=== PATIENT | male | born 1955 | race Hispanic/Latino ===

== ENCOUNTER 2022-04-15 17:23 | Emergency (ER) | payer MEDICARE, BC ==
[2022-04-15] MEDS ORDERED: Acetaminophen 500 MG TAB ONE (17:56)
== END 2022-04-15 18:14 | disposition home or self-care (01) ==
LOC: CSHERS 17:23
DX: U07.1 COVID-19 (principal); E11.9 Type 2 diabetes mellitus without complications; I25.10 Atherosclerotic heart disease of native coronary artery without angina pectoris; I10 Essential (primary) hypertension; K21.9 Gastro-esophageal reflux disease without esophagitis; Z79.899 Other long term (current) drug therapy; Z79.82 Long term (current) use of aspirin; Z79.84 Long term (current) use of oral hypoglycemic drugs
CPT/HCPCS: 99283

== ENCOUNTER 2022-10-12 17:52 | Inpatient (IN) | payer MEDICARE, BC ==
[2022-10-12 18:38] LABS: #Eosinphils 0.1 10x3/uL (0.0-0.5); #Monocytes 0.5 10x3/uL (0.0-1.1); #Neutrophils 7.4 10x3/uL (1.5-8.4); %Basophils 0.5 % (0.0-2.0); %Eosinophils 0.9 % (0.0-6.0); %Monocytes 5.7 % (0.0-10.0); %Neutrophils 84.6 % (40.0-75.0); Hemoglobin 13.4 g/dL (13.5-17.5); Mean Corpuscular Hemoglobin 30.9 pg (27.0-33.0); Mean Platelet Volume 10.3 fl (7.4-10.4); Platelet Count 227 10x3/uL (150-450); RBC Distribution Width 12.4 % (11.5-14.5); Red Blood Cell (RBC) Count 4.33 10x6/uL (4.32-5.72); White Blood Cell (WBC) Count 8.7 10x3/uL (3.5-10.5)
[2022-10-12 18:51] LABS: ALT (SGPT) 11 U/L (8-55); AST (SGOT) 17 U/L (5-34); Albumin 3.9 g/dL (3.4-4.8); Alkaline Phosphatase 95 U/L (40-110); Anion Gap 13 mmol/L (10-20); BUN (Urea Nitrogen) 13 mg/dL (8.4-25.7); Bilirubin, Total 0.7 mg/dL (0.2-1.2); Calc. Creatinine Clearance 0 mL/min (70-130); Calcium 8.9 mg/dL (7.8-10.44); Carbon Dioxide 26 mmol/L (23-31); Chloride 102 mmol/L (98-107); Estimated GFR 86; Globulin 2.4 g/dL (2.4-3.5); Glucose 247 mg/dL (80-115); Potassium 3.8 mmol/L (3.5-5.1); Protein, Total 6.3 g/dL (5.8-8.1); Sodium 137 mmol/L (136-145)
[2022-10-12 19:13] LABS: CKMB 1.2 ng/mL (0-6.6)
[2022-10-12] MEDS ORDERED: Aspirin Chewable 81 MG TAB ONE (19:44)
[2022-10-12 20:53] LABS: SARS-CoV-2 NAA Rapid Test Not Detected (NotDetected)
[2022-10-12 22:09] LABS: Troponin I 0.068 ng/mL (< 0.028)
[2022-10-12] MEDS ORDERED: Dextrose 5% in Water 1,000 ML IV PRN (22:42)
[2022-10-12] MEDS ORDERED: Acetaminophen 325 MG TAB PO PRN (22:42)
[2022-10-12] MEDS ORDERED: Guaifenesin DM 100-10/5 ML UDCUP PO PRN (22:42)
[2022-10-12] MEDS ORDERED: HYDROcodone/Acetaminophen 5/325 mg Tablet PO PRN (22:42)
[2022-10-12] MEDS ORDERED: Ondansetron PF 4 MG/2 ML Vial IVP PRN (22:42)
[2022-10-12] MEDS ORDERED: Dextrose 50% Abboject 50 ML SYRINGE SLOW IVP PRN (22:42)
[2022-10-12] MEDS ORDERED: HumaLOG 300 UNITS/3 ML VIAL SC PRN (22:42)
[2022-10-12] MEDS ORDERED: Morphine 2 MG/ML VIAL SLOW IVP PRN (23:00)
[2022-10-12] MEDS ORDERED: Furosemide 40 MG/4 ML VIAL SLOW IVP SCH (23:00)
[2022-10-12] MEDS ORDERED: hydrALAZINE 20 MG/ML VIAL SLOW IVP PRN (23:00)
[2022-10-12 23:08] LABS: Magnesium 1.4 mg/dL (1.6-2.6)
[2022-10-13 00:07] VITALS: BMI 26.2
[2022-10-13 00:25] LABS: Bilirubin Neg (Negative); Blood, Urine Negative (Negative); Clarity Cloudy (Clear); Glucose, Urine (Dipstick) Normal (Negative); Ketone, Urine Negative (Negative); Leukocyte Negative (Negative); Nitrite Negative (Negative); Protein, Urine (Dipstick) Negative (Neg-Trace); Specific Gravity, Urine 1.025 (1.005-1.030); Urobilinogen Normal mg/dL (Less than 2)
[2022-10-13 00:33] LABS: Bacteria/HPF None Seen HPF (None Seen); RBC/HPF 0-3 HPF (0-3); Squamous Epithelial None Seen HPF (0-3); WBC/HPF 0-3 HPF (0-3)
[2022-10-13] MEDS ORDERED: Furosemide 40 MG/4 ML VIAL ONE (00:34)
[2022-10-13 01:10] LABS: Troponin I 0.068 ng/mL (< 0.028)
[2022-10-13 04:29] LABS: Hemoglobin 12.9 g/dL (13.5-17.5); Mean Corpuscular HGB CONC 34.1 g/dL (32.0-36.0); Mean Corpuscular Hemoglobin 30.4 pg (27.0-33.0); Mean Corpuscular Volume 89.2 fl (81.2-95.1); Mean Platelet Volume 10.4 fl (7.4-10.4); Platelet Count 230 10x3/uL (150-450); RBC Distribution Width 12.5 % (11.5-14.5); Red Blood Cell (RBC) Count 4.24 10x6/uL (4.32-5.72); White Blood Cell (WBC) Count 12.7 10x3/uL (3.5-10.5)
[2022-10-13 04:32] LABS: Troponin I 0.065 ng/mL (< 0.028)
[2022-10-13 04:34] LABS: ALT (SGPT) 11 U/L (8-55); AST (SGOT) 15 U/L (5-34); Albumin 3.5 g/dL (3.4-4.8); Alkaline Phosphatase 90 U/L (40-110); Anion Gap 15 mmol/L (10-20); BUN (Urea Nitrogen) 24 mg/dL (8.4-25.7); Bilirubin, Total 0.5 mg/dL (0.2-1.2); Calc. Creatinine Clearance 60 mL/min (70-130); Calcium 8.8 mg/dL (7.8-10.44); Carbon Dioxide 26 mmol/L (23-31); Cardiac Risk 5.2 (Less than 4.5); Chloride 100 mmol/L (98-107); Cholesterol 249 mg/dl (< 200 Desired); Estimated GFR 56; Globulin 2.7 g/dL (2.4-3.5); HDL Cholesterol 48 mg/dL (>60 Neg Risk); LDL Cholesterol, Calculated 176 mg/dL; Potassium 3.9 mmol/L (3.5-5.1); Protein, Total 6.2 g/dL (5.8-8.1); Sodium 137 mmol/L (136-145); Triglycerides 127 mg/dL (Less than 150)
[2022-10-13 04:36] LABS: MDiff Complete? YES
[2022-10-13 04:52] LABS: Glucose 489 mg/dL (80-115)
[2022-10-13] MEDS: HumaLOG 300 UNITS/3 ML VIAL SC PRN ×2 (04:55→16:51)
[2022-10-13 05:25] LABS: Band 11 % (5-11); Lymphocytes 6 % (21-51); Monocytes 3 % (0-10); Neutrophil 77 % (42-75); Reactive Lymphocytes 3 % (0-10)
[2022-10-13 05:27] LABS: Platelet Morphology Comment Appears Adequate; RBC Morphology Normal
[2022-10-13] MEDS ORDERED: Furosemide 40 MG TAB PO SCH (09:00)
[2022-10-13] MEDS ORDERED: Famotidine 20 MG TAB ONE (10:37)
[2022-10-13] MEDS ORDERED: Carvedilol 3.125 MG TAB ONE ×2 (10:38→16:29)
[2022-10-13] MEDS ORDERED: Potassium Chloride 20 MEQ TAB ONE (10:38)
[2022-10-13] MEDS ORDERED: metFORMIN 500 MG TAB ONE ×2 (10:39→16:31)
[2022-10-13] MEDS ORDERED: Aspirin 81 mg Enteric Coated Tablet ONE (10:39)
[2022-10-13] MEDS ORDERED: Furosemide 40 MG TAB ONE (10:40)
[2022-10-13] MEDS ORDERED: Enoxaparin Sodium 40 MG/0.4 ML SYRINGE ONE (10:40)
[2022-10-13] MEDS: Carvedilol 3.125 MG TAB PO SCH ×2 (10:50→16:34)
[2022-10-13] MEDS: Aspirin 81 mg Enteric Coated Tablet PO SCH (10:50)
[2022-10-13] MEDS: Famotidine 20 MG TAB PO SCH ×2 (10:50→21:52)
[2022-10-13] MEDS: Potassium Chloride 20 MEQ TAB PO SCH (10:50)
[2022-10-13] MEDS: metFORMIN 500 MG TAB PO SCH ×2 (10:50→16:34)
[2022-10-13] MEDS: Enoxaparin Sodium 40 MG/0.4 ML SYRINGE SC SCH (10:50)
[2022-10-13] MEDS ORDERED: cefTRIAXone\\ROCEPHIN 1 GM VIAL ONE (13:53)
[2022-10-13] MEDS: cefTRIAXone\\ROCEPHIN 1 GM in Sodium Chloride 0.9% 100 ML IVPB SCH (15:36)
[2022-10-13] MEDS: Lantus 1000 UNITS/10 ML VIAL SC SCH (21:52)
[2022-10-13] MEDS: Atorvastatin Calcium 10 MG TAB PO SCH (21:52)
[2022-10-14] MEDS: HumaLOG 300 UNITS/3 ML VIAL SC PRN ×2 (05:46→15:37)
[2022-10-14] MEDS: Carvedilol 3.125 MG TAB PO SCH ×2 (08:24→15:20)
[2022-10-14] MEDS: Enoxaparin Sodium 40 MG/0.4 ML SYRINGE SC SCH (08:24)
[2022-10-14] MEDS: Furosemide 40 MG TAB PO SCH (08:24)
[2022-10-14] MEDS: metFORMIN 500 MG TAB PO SCH (08:24)
[2022-10-14] MEDS: Potassium Chloride 20 MEQ TAB PO SCH (08:24)
[2022-10-14] MEDS: Famotidine 20 MG TAB PO SCH ×2 (08:24→21:25)
[2022-10-14] MEDS: Aspirin 81 mg Enteric Coated Tablet PO SCH (08:24)
[2022-10-14] MEDS ORDERED: Iopamidol 370 76% 100 ML VIAL ONE (09:35)
[2022-10-14] MEDS: cefTRIAXone\\ROCEPHIN 1 GM in Sodium Chloride 0.9% 100 ML IVPB SCH (11:12)
[2022-10-14] MEDS ORDERED: Doxycycline 100 MG CAP PO SCH (21:00)
[2022-10-14] MEDS: Lantus 1000 UNITS/10 ML VIAL SC SCH (21:23)
[2022-10-14] MEDS: Atorvastatin Calcium 10 MG TAB PO SCH (21:25)
[2022-10-15] MEDS: Zolpidem Tartrate 5 MG TAB PO PRN (00:19)
[2022-10-15 05:11] LABS: #Eosinphils 0.2 10x3/uL (0.0-0.5); #Monocytes 0.6 10x3/uL (0.0-1.1); %Basophils 0.3 % (0.0-2.0); %Eosinophils 1.6 % (0.0-6.0); %Lymphocytes 11.6 % (18.0-47.0); %Monocytes 6.3 % (0.0-10.0); %Neutrophils 79.7 % (40.0-75.0); Hemoglobin 10.8 g/dL (13.5-17.5); Mean Corpuscular HGB CONC 34.3 g/dL (32.0-36.0); Mean Corpuscular Hemoglobin 30.7 pg (27.0-33.0); Mean Corpuscular Volume 89.5 fl (81.2-95.1); Mean Platelet Volume 11.2 fl (7.4-10.4); Platelet Count 207 10x3/uL (150-450); RBC Distribution Width 12.6 % (11.5-14.5); Red Blood Cell (RBC) Count 3.52 10x6/uL (4.32-5.72); White Blood Cell (WBC) Count 10.1 10x3/uL (3.5-10.5)
[2022-10-15 05:24] LABS: Anion Gap 12 mmol/L (10-20); BUN (Urea Nitrogen) 27 mg/dL (8.4-25.7); CRP (Inflammatory) 21.09 mg/dL (= or < 0.5); Calc. Creatinine Clearance 71 mL/min (70-130); Calcium 8.3 mg/dL (7.8-10.44); Carbon Dioxide 27 mmol/L (23-31); Chloride 99 mmol/L (98-107); Estimated GFR 67; Glucose 309 mg/dL (80-115); Potassium 3.2 mmol/L (3.5-5.1); Sodium 135 mmol/L (136-145)
[2022-10-15] MEDS: HumaLOG 300 UNITS/3 ML VIAL SC PRN ×3 (06:26→17:13)
[2022-10-15] MEDS ORDERED: Potassium Chloride 20 MEQ TAB PO SCH (07:15)
[2022-10-15] MEDS: Enoxaparin Sodium 40 MG/0.4 ML SYRINGE SC SCH (08:11)
[2022-10-15] MEDS: Famotidine 20 MG TAB PO SCH ×2 (08:11→21:48)
[2022-10-15] MEDS: Furosemide 40 MG TAB PO SCH (08:11)
[2022-10-15] MEDS: Aspirin 81 mg Enteric Coated Tablet PO SCH (08:11)
[2022-10-15] MEDS: Carvedilol 3.125 MG TAB PO SCH ×2 (08:11→17:13)
[2022-10-15] MEDS: Potassium Chloride 20 MEQ TAB PO SCH (08:13)
[2022-10-15] MEDS: cefTRIAXone\\ROCEPHIN 1 GM in Sodium Chloride 0.9% 100 ML IVPB SCH (11:21)
[2022-10-15] MEDS: Lantus 1000 UNITS/10 ML VIAL SC SCH (21:45)
[2022-10-15] MEDS: Atorvastatin Calcium 10 MG TAB PO SCH (21:48)
[2022-10-16] MEDS: Zolpidem Tartrate 5 MG TAB PO PRN (00:07)
[2022-10-16 05:33] LABS: Anion Gap 12 mmol/L (10-20); BUN (Urea Nitrogen) 22 mg/dL (8.4-25.7); CRP (Inflammatory) 8.81 mg/dL (= or < 0.5); Calc. Creatinine Clearance 85 mL/min (70-130); Calcium 8.6 mg/dL (7.8-10.44); Carbon Dioxide 26 mmol/L (23-31); Chloride 103 mmol/L (98-107); Estimated GFR 84; Glucose 257 mg/dL (80-115); Magnesium 1.6 mg/dL (1.6-2.6); Potassium 3.7 mmol/L (3.5-5.1); Sodium 137 mmol/L (136-145)
[2022-10-16] MEDS: HumaLOG 300 UNITS/3 ML VIAL SC PRN (06:10)
[2022-10-16] MEDS: Carvedilol 3.125 MG TAB PO SCH (08:01)
[2022-10-16] MEDS: Enoxaparin Sodium 40 MG/0.4 ML SYRINGE SC SCH (08:01)
[2022-10-16] MEDS: Famotidine 20 MG TAB PO SCH (08:01)
[2022-10-16] MEDS: Potassium Chloride 20 MEQ TAB PO SCH (08:01)
[2022-10-16] MEDS: Aspirin 81 mg Enteric Coated Tablet PO SCH (08:01)
[2022-10-16] MEDS: Furosemide 40 MG TAB PO SCH (08:01)
[2022-10-16] MEDS ORDERED: Potassium Chloride 20 MEQ TAB PO SCH (12:00)
[2022-10-16] MEDS: cefTRIAXone\\ROCEPHIN 1 GM in Sodium Chloride 0.9% 100 ML IVPB SCH (12:04)
[2022-10-16 12:20] VITALS: TEMP 98.1
[2022-10-16 13:01] VITALS: BP 144/77
[2022-10-16] MEDS ORDERED: metFORMIN 500 MG TAB PO SCH (17:00)
== END 2022-10-16 14:03 | disposition home or self-care (01) | DRG 177 ==
LOC: CSHERS 17:52 → CSHERHOLD 22:49 → CSHTELE 10-13 15:17 → OBSVTOIN 10-14 14:45
PROVIDERS: ADMIT Internal Medicine; ATTEND Family Medicine
DX: J15.6 Pneumonia due to other Gram-negative bacteria (principal); I50.43 Acute on chronic combined systolic (congestive) and diastolic (congestive) heart failure; I11.0 Hypertensive heart disease with heart failure; I25.5 Ischemic cardiomyopathy; E78.5 Hyperlipidemia, unspecified; I25.10 Atherosclerotic heart disease of native coronary artery without angina pectoris; K21.9 Gastro-esophageal reflux disease without esophagitis; D64.9 Anemia, unspecified; N40.0 Benign prostatic hyperplasia without lower urinary tract symptoms; E11.65 Type 2 diabetes mellitus with hyperglycemia; Z20.822 Contact with and (suspected) exposure to COVID-19; Z95.5 Presence of coronary angioplasty implant and graft; Z86.73 Personal history of transient ischemic attack (TIA), and cerebral infarction without residual deficits; Z79.82 Long term (current) use of aspirin; Z79.899 Other long term (current) drug therapy; Z79.84 Long term (current) use of oral hypoglycemic drugs; Z88.1 Allergy status to other antibiotic agents; Z91.14 Patient's other noncompliance with medication regimen; Z95.0 Presence of cardiac pacemaker; I25.2 Old myocardial infarction; Z95.2 Presence of prosthetic heart valve; Z86.16 Personal history of COVID-19; Z87.01 Personal history of pneumonia (recurrent)
CPT/HCPCS: 36415; 36416; 71045; 71260; 80048; 80053; 80061; 81001; 82553; 83735; 83880; 84145; 84443; 84484; 85025; 86140; 87040; 93005; 93880; J0696; J1650; J1815; J1940; J2405; J3490; Q9967

== ENCOUNTER 2023-07-02 13:37 | Inpatient (IN) | payer MEDICARE, BC ==
[2023-07-02 14:38] VITALS: BMI 29.1
[2023-07-02] MEDS ORDERED: Glucagon 1 MG/ML KIT IM PRN (14:47)
[2023-07-02] MEDS ORDERED: HumaLOG 300 UNITS/3 ML VIAL SC PRN (14:47)
[2023-07-02] MEDS ORDERED: Dextrose 5% in Water 1,000 ML IV PRN (14:47)
[2023-07-02] MEDS ORDERED: Dextrose 50% Abboject 50 ML SYRINGE SLOW IVP PRN (14:47)
[2023-07-02] MEDS ORDERED: Sodium Chloride 0.65% Nasal 44 ML BOT EA NARE PRN (14:49)
[2023-07-02] MEDS ORDERED: Loperamide HCl 2 MG CAP PO PRN ×2 (14:49)
[2023-07-02] MEDS ORDERED: Senokot S 8.6-50 MG TAB PO PRN (14:49)
[2023-07-02] MEDS ORDERED: Loratadine 10 MG TAB PO PRN (14:49)
[2023-07-02] MEDS ORDERED: Ondansetron ODT 4 MG TAB PO PRN (14:49)
[2023-07-02] MEDS ORDERED: diphenhydrAMINE 25 MG CAP PO PRN (14:49)
[2023-07-02] MEDS ORDERED: Artificial Tear Sol 15 ML BOT EA EYE PRN (14:49)
[2023-07-02] MEDS ORDERED: Labetalol HCl 100 MG/20 ML VIAL SLOW IVP PRN (14:49)
[2023-07-02] MEDS ORDERED: Calcium Carbonate 500 MG ChewTAB PO PRN (14:49)
[2023-07-02] MEDS ORDERED: Ondansetron PF 4 MG/2 ML Vial IVP PRN (14:49)
[2023-07-02] MEDS ORDERED: Bisacodyl 5 MG TAB PO PRN (14:49)
[2023-07-02] MEDS ORDERED: Moisturizing Cream (Eucerin) 113 GM JAR TOP PRN (14:49)
[2023-07-02] MEDS ORDERED: Acetaminophen 650 MG Suppository PR PRN (14:49)
[2023-07-02] MEDS ORDERED: Aspirin 325 MG TAB PO SCH (15:30)
[2023-07-02] MEDS: Carvedilol 6.25 MG TAB PO SCH (15:49)
[2023-07-02] MEDS: HumaLOG 300 UNITS/3 ML VIAL SC PRN (15:50)
[2023-07-02 15:52] LABS: Troponin I 0.048 ng/mL (< 0.028)
[2023-07-02 18:23] LABS: Troponin I 0.048 ng/mL (< 0.028)
[2023-07-02] MEDS: Sacubitril 24MG/Valsartan 26 MG TAB PO SCH (20:47)
[2023-07-02] MEDS: Famotidine 20 MG TAB PO SCH (20:48)
[2023-07-02] MEDS: Acetaminophen 325 MG TAB PO PRN (20:48)
[2023-07-02] MEDS: Nitroglycerin 2% Ointment 1 INCH/1 GM Packet TOP SCH (21:06)
[2023-07-03 04:21] LABS: Anion Gap 14 mmol/L (10-20); BUN (Urea Nitrogen) 23 mg/dL (8.4-25.7); Calc. Creatinine Clearance 72 mL/min (70-130); Calcium 8.2 mg/dL (7.8-10.44); Carbon Dioxide 24 mmol/L (23-31); Chloride 103 mmol/L (98-107); Cholesterol 274 mg/dl (< 200 Desired); Estimated GFR 62; Glucose 230 mg/dL (80-115); HDL Cholesterol 39 mg/dL (>60 Neg Risk); LDL Cholesterol, Calculated 207 mg/dL; Potassium 3.8 mmol/L (3.5-5.1); Sodium 137 mmol/L (136-145); Triglycerides 142 mg/dL (Less than 150)
[2023-07-03] MEDS: Nitroglycerin 2% Ointment 1 INCH/1 GM Packet TOP SCH ×3 (05:02→21:20)
[2023-07-03] MEDS: HumaLOG 300 UNITS/3 ML VIAL SC PRN ×3 (06:16→17:27)
[2023-07-03] MEDS: Sacubitril 24MG/Valsartan 26 MG TAB PO SCH ×2 (08:52→21:17)
[2023-07-03] MEDS: Famotidine 20 MG TAB PO SCH ×2 (08:52→21:17)
[2023-07-03] MEDS: Carvedilol 6.25 MG TAB PO SCH ×2 (08:52→17:27)
[2023-07-03] MEDS: Aspirin Chewable 81 MG TAB PO SCH (08:53)
[2023-07-03] MEDS: Empagliflozin 10 MG TAB PO SCH (08:53)
[2023-07-03 19:42] LABS: Hemoglobin A1c Greater than 14.0 % (4.0-6.0)
[2023-07-03] MEDS ORDERED: Lantus 1000 UNITS/10 ML VIAL SC SCH (21:00)
[2023-07-03] MEDS ORDERED: Atorvastatin Calcium 40 MG TAB PO SCH (21:00)
[2023-07-03] MEDS: Acetaminophen 325 MG TAB PO PRN (21:19)
[2023-07-04 03:42] LABS: Hemoglobin 12.3 g/dL (13.5-17.5); Mean Corpuscular HGB CONC 34.2 g/dL (32.0-36.0); Mean Corpuscular Hemoglobin 30.4 pg (27.0-33.0); Mean Corpuscular Volume 89.1 fl (81.2-95.1); Mean Platelet Volume 10.2 fl (7.4-10.4); Platelet Count 224 10x3/uL (150-450); RBC Distribution Width 12.3 % (11.5-14.5); Red Blood Cell (RBC) Count 4.04 10x6/uL (4.32-5.72); White Blood Cell (WBC) Count 3.4 10x3/uL (3.5-10.5)
[2023-07-04 04:03] LABS: Anion Gap 14 mmol/L (10-20); BUN (Urea Nitrogen) 26 mg/dL (8.4-25.7); Calc. Creatinine Clearance 70 mL/min (70-130); Calcium 8.6 mg/dL (7.8-10.44); Carbon Dioxide 24 mmol/L (23-31); Chloride 106 mmol/L (98-107); Estimated GFR 60; Glucose 178 mg/dL (80-115); Potassium 3.6 mmol/L (3.5-5.1); Sodium 140 mmol/L (136-145)
[2023-07-04] MEDS: Nitroglycerin 2% Ointment 1 INCH/1 GM Packet TOP SCH (06:04)
[2023-07-04] MEDS ORDERED: Lantus 1000 UNITS/10 ML VIAL SC SCH (09:00)
[2023-07-04] MEDS: Famotidine 20 MG TAB PO SCH (09:45)
[2023-07-04] MEDS: Empagliflozin 10 MG TAB PO SCH (09:45)
[2023-07-04] MEDS: Carvedilol 6.25 MG TAB PO SCH (09:45)
[2023-07-04] MEDS: Aspirin Chewable 81 MG TAB PO SCH (09:45)
[2023-07-04] MEDS: Sacubitril 24MG/Valsartan 26 MG TAB PO SCH (10:06)
[2023-07-04] MEDS ORDERED: Potassium Chloride 20 MEQ TAB PO SCH (10:15)
[2023-07-04 12:51] VITALS: BP 150/87; TEMP 97.6
[2023-07-04] MEDS: HumaLOG 300 UNITS/3 ML VIAL SC PRN (13:27)
== END 2023-07-04 14:50 | disposition home or self-care (01) | DRG 281 ==
LOC: CSHTELE 14:22 → OBSVTOIN 07-03 12:45
PROVIDERS: ADMIT Family Medicine; ATTEND Internal Medicine
DX: R07.89 Other chest pain (principal); I21.A1 Myocardial infarction type 2; I50.42 Chronic combined systolic (congestive) and diastolic (congestive) heart failure; I69.354 Hemiplegia and hemiparesis following cerebral infarction affecting left non-dominant side; I11.0 Hypertensive heart disease with heart failure; Z88.1 Allergy status to other antibiotic agents; Z88.8 Allergy status to other drugs, medicaments and biological substances; Z79.82 Long term (current) use of aspirin; Z79.899 Other long term (current) drug therapy; I25.10 Atherosclerotic heart disease of native coronary artery without angina pectoris; Z82.49 Family history of ischemic heart disease and other diseases of the circulatory system; N40.0 Benign prostatic hyperplasia without lower urinary tract symptoms; K21.9 Gastro-esophageal reflux disease without esophagitis; Z83.3 Family history of diabetes mellitus; E78.2 Mixed hyperlipidemia; Z79.4 Long term (current) use of insulin; Z91.148 Patient's other noncompliance with medication regimen for other reason; Z95.0 Presence of cardiac pacemaker; Z95.2 Presence of prosthetic heart valve; E11.319 Type 2 diabetes mellitus with unspecified diabetic retinopathy without macular edema; E11.51 Type 2 diabetes mellitus with diabetic peripheral angiopathy without gangrene; E11.43 Type 2 diabetes mellitus with diabetic autonomic (poly)neuropathy; I48.0 Paroxysmal atrial fibrillation; Z98.41 Cataract extraction status, right eye; Z98.42 Cataract extraction status, left eye; Z86.16 Personal history of COVID-19; Z95.5 Presence of coronary angioplasty implant and graft; Z90.89 Acquired absence of other organs
CPT/HCPCS: 36415; 36416; 71045; 80048; 80053; 80061; 83036; 83880; 84484; 85025; 85027; 93005; 93306; J1650; J1815

== ENCOUNTER 2023-09-09 23:22 | Observation (INO) | payer MEDICARE, BC ==
[2023-09-10 00:59] LABS: #Eosinphils 0.2 10x3/uL (0.0-0.5); #Monocytes 0.6 10x3/uL (0.0-1.1); #Neutrophils 3.6 10x3/uL (1.5-8.4); %Basophils 0.5 % (0.0-2.0); %Eosinophils 4.2 % (0.0-6.0); %Lymphocytes 17.7 % (18.0-47.0); %Monocytes 11.7 % (0.0-10.0); %Neutrophils 65.7 % (40.0-75.0); Hematocrit 38.1 % (38.8-50.0); Hemoglobin 12.7 g/dL (13.5-17.5); Mean Corpuscular HGB CONC 33.3 g/dL (32.0-36.0); Mean Corpuscular Hemoglobin 30.6 pg (27.0-33.0); Mean Corpuscular Volume 91.8 fl (81.2-95.1); Mean Platelet Volume 9.9 fl (7.4-10.4); Platelet Count 224 10x3/uL (150-450); Red Blood Cell (RBC) Count 4.15 10x6/uL (4.32-5.72); White Blood Cell (WBC) Count 5.5 10x3/uL (3.5-10.5)
[2023-09-10 01:15] LABS: ALT (SGPT) 13 U/L (8-55); AST (SGOT) 20 U/L (5-34); Albumin 3.6 g/dL (3.4-4.8); Alkaline Phosphatase 78 U/L (40-110); Anion Gap 13 mmol/L (10-20); BUN (Urea Nitrogen) 17 mg/dL (8.4-25.7); Bilirubin, Total 0.7 mg/dL (0.2-1.2); Calc. Creatinine Clearance 0 mL/min (70-130); Calcium 8.2 mg/dL (7.8-10.44); Carbon Dioxide 23 mmol/L (23-31); Chloride 109 mmol/L (98-107); Estimated GFR 86; Globulin 2.1 g/dL (2.4-3.5); Glucose 140 mg/dL (80-115); Potassium 3.4 mmol/L (3.5-5.1); Protein, Total 5.7 g/dL (5.8-8.1); Sodium 142 mmol/L (136-145)
[2023-09-10 01:21] LABS: Troponin I 0.058 ng/mL (< 0.028)
[2023-09-10] MEDS ORDERED: Ondansetron PF 4 MG/2 ML Vial IVP PRN (02:41)
[2023-09-10] MEDS ORDERED: Acetaminophen 325 MG TAB PO PRN (02:41)
[2023-09-10] MEDS ORDERED: Senokot S 8.6-50 MG TAB PO PRN (02:41)
[2023-09-10] MEDS ORDERED: Dextrose 5% in Water 1,000 ML IV PRN (02:41)
[2023-09-10] MEDS ORDERED: Glucagon 1 MG/ML KIT IM PRN (02:41)
[2023-09-10] MEDS ORDERED: Dextrose 50% Abboject 50 ML SYRINGE SLOW IVP PRN (02:41)
[2023-09-10] MEDS ORDERED: Calcium Carbonate 500 MG ChewTAB PO PRN (02:41)
[2023-09-10] MEDS ORDERED: Guaifenesin DM 100-10/5 ML UDCUP PO PRN (02:41)
[2023-09-10] MEDS ORDERED: Nitroglycerin 2% Ointment 1 INCH/1 GM Packet ONE (02:50)
[2023-09-10] MEDS ORDERED: Aspirin Chewable 81 MG TAB ONE (02:50)
[2023-09-10] MEDS ORDERED: Potassium Chloride 20 MEQ TAB PO SCH ×3 (03:00→12:45)
[2023-09-10] MEDS ORDERED: Furosemide 40 MG/4 ML VIAL SLOW IVP SCH (03:00)
[2023-09-10 04:26] VITALS: BMI 28.0
[2023-09-10 07:14] LABS: Anion Gap 14 mmol/L (10-20); BUN (Urea Nitrogen) 17 mg/dL (8.4-25.7); Calc. Creatinine Clearance 81 mL/min (70-130); Calcium 8.5 mg/dL (7.8-10.44); Carbon Dioxide 24 mmol/L (23-31); Chloride 106 mmol/L (98-107); Estimated GFR 75; Glucose 226 mg/dL (80-115); Potassium 3.2 mmol/L (3.5-5.1); Sodium 141 mmol/L (136-145)
[2023-09-10 07:21] LABS: Troponin I 0.063 ng/mL (< 0.028)
[2023-09-10] MEDS: Lantus 1000 UNITS/10 ML VIAL SC SCH (08:28)
[2023-09-10] MEDS: Sacubitril 24MG/Valsartan 26 MG TAB PO SCH ×2 (08:29→21:20)
[2023-09-10] MEDS: Aspirin 81 mg Enteric Coated Tablet PO SCH (08:29)
[2023-09-10] MEDS: Carvedilol 6.25 MG TAB PO SCH ×2 (08:29→16:14)
[2023-09-10] MEDS ORDERED: FLU VACC QS2023(65UP)/MF59C/PF 60 MCG/0.5 ML SYRINGE IM ONE (09:00)
[2023-09-10 10:21] LABS: Troponin I 0.047 ng/mL (< 0.028)
[2023-09-10] MEDS: Empagliflozin 10 MG TAB PO SCH (11:37)
[2023-09-10 12:08] LABS: Magnesium 1.9 mg/dL (1.6-2.6)
[2023-09-10] MEDS ORDERED: Magnesium 2 GM/50 ML(in water) 2 GM in Premix 1 BAG IVPB SCH (12:45)
[2023-09-10] MEDS ORDERED: Tamsulosin HCl 0.4 MG CAP PO SCH (13:00)
[2023-09-10] MEDS: HumaLOG 300 UNITS/3 ML VIAL SC PRN ×2 (13:25→16:45)
[2023-09-10] MEDS: Furosemide 20 MG/2 ML VIAL SLOW IVP SCH (13:28)
[2023-09-10 15:03] LABS: Hemoglobin A1c 11.1 % (4.0-6.0)
[2023-09-10] MEDS ORDERED: Atorvastatin Calcium 40 MG TAB PO SCH (21:00)
[2023-09-11] MEDS: Sacubitril 24MG/Valsartan 26 MG TAB PO SCH (07:51)
[2023-09-11] MEDS: Aspirin 81 mg Enteric Coated Tablet PO SCH (07:51)
[2023-09-11] MEDS: Carvedilol 6.25 MG TAB PO SCH (07:51)
[2023-09-11] MEDS: Lantus 1000 UNITS/10 ML VIAL SC SCH (07:52)
[2023-09-11] MEDS: Empagliflozin 10 MG TAB PO SCH (07:52)
[2023-09-11] MEDS: Furosemide 20 MG/2 ML VIAL SLOW IVP SCH (07:52)
[2023-09-11] MEDS ORDERED: Tamsulosin HCl 0.4 MG CAP PO SCH (09:00)
[2023-09-11 11:50] LABS: Anion Gap 15 mmol/L (10-20); BUN (Urea Nitrogen) 24 mg/dL (8.4-25.7); Calc. Creatinine Clearance 70 mL/min (70-130); Calcium 8.9 mg/dL (7.8-10.44); Carbon Dioxide 26 mmol/L (23-31); Chloride 103 mmol/L (98-107); Estimated GFR 62; Glucose 236 mg/dL (80-115); Magnesium 2.1 mg/dL (1.6-2.6); Potassium 3.9 mmol/L (3.5-5.1); Sodium 140 mmol/L (136-145)
[2023-09-11] MEDS ORDERED: Potassium Chloride 20 MEQ TAB PO SCH (12:00)
[2023-09-11 12:39] VITALS: BP 177/99; TEMP 97.9
== END 2023-09-11 15:17 | disposition home or self-care (01) ==
LOC: CSHERS 23:22 → CSHTELE 09-10 02:41
PROVIDERS: ADMIT Student in an Organized Health Care Education/Training Program; ATTEND Hospitalist
DX: I11.0 Hypertensive heart disease with heart failure (principal); I50.43 Acute on chronic combined systolic (congestive) and diastolic (congestive) heart failure; I25.10 Atherosclerotic heart disease of native coronary artery without angina pectoris; E78.2 Mixed hyperlipidemia; E11.59 Type 2 diabetes mellitus with other circulatory complications; K21.9 Gastro-esophageal reflux disease without esophagitis; E11.40 Type 2 diabetes mellitus with diabetic neuropathy, unspecified; R77.8 Other specified abnormalities of plasma proteins; N40.0 Benign prostatic hyperplasia without lower urinary tract symptoms; Z95.810 Presence of automatic (implantable) cardiac defibrillator; Z88.1 Allergy status to other antibiotic agents; Z79.82 Long term (current) use of aspirin; Z79.899 Other long term (current) drug therapy; Z87.891 Personal history of nicotine dependence; Z90.89 Acquired absence of other organs; Z95.4 Presence of other heart-valve replacement; Z88.5 Allergy status to narcotic agent
CPT/HCPCS: 71045; 80048 ×2; 82962 ×2; 83036; 83735 ×2; 83880; 84484 ×2; 85379; 96372 ×2; 96374; 96375; 96376 ×2; 99285; G0378 ×3; 36415; 36416; 80053; 84443; 85025; J1650; J1815; J1940; J3475

== ENCOUNTER 2023-09-16 22:28 | Emergency (ER) | payer MEDICARE, BC ==
[~2023-09-16 22:28] MED LIST: Iopamidol 300 61% 100 ML VIAL FS ONE
[2023-09-17 00:26] LABS: #Eosinphils 0.2 10x3/uL (0.0-0.5); #Monocytes 0.5 10x3/uL (0.0-1.1); #Neutrophils 2.7 10x3/uL (1.5-8.4); %Basophils 0.9 % (0.0-2.0); %Eosinophils 4.1 % (0.0-6.0); %Lymphocytes 21.5 % (18.0-47.0); %Monocytes 11.6 % (0.0-10.0); %Neutrophils 60.5 % (40.0-75.0); Hematocrit 38.8 % (38.8-50.0); Hemoglobin 12.8 g/dL (13.5-17.5); Mean Corpuscular Hemoglobin 30.2 pg (27.0-33.0); Mean Corpuscular Volume 91.5 fl (81.2-95.1); Mean Platelet Volume 10.2 fl (7.4-10.4); Platelet Count 246 10x3/uL (150-450); RBC Distribution Width 12.6 % (11.5-14.5); Red Blood Cell (RBC) Count 4.24 10x6/uL (4.32-5.72); White Blood Cell (WBC) Count 4.4 10x3/uL (3.5-10.5)
[2023-09-17 00:34] LABS: PTT 25.4 sec (22.0-33.0); Prothrombin Time 10.6 sec (9.5-12.1)
[2023-09-17 00:37] LABS: Troponin I 0.039 ng/mL (< 0.028)
[2023-09-17 00:38] LABS: ALT (SGPT) 14 U/L (8-55); AST (SGOT) 19 U/L (5-34); Albumin 3.7 g/dL (3.4-4.8); Alkaline Phosphatase 77 U/L (40-110); Anion Gap 15 mmol/L (10-20); BUN (Urea Nitrogen) 22 mg/dL (8.4-25.7); Bilirubin, Total 0.4 mg/dL (0.2-1.2); Calc. Creatinine Clearance 0 mL/min (70-130); Calcium 8.7 mg/dL (7.8-10.44); Carbon Dioxide 25 mmol/L (23-31); Chloride 103 mmol/L (98-107); Estimated GFR 64; Globulin 2.7 g/dL (2.4-3.5); Glucose 249 mg/dL (80-115); Lipase 43 U/L (8-78); Magnesium 2.1 mg/dL (1.6-2.6); Potassium 4.1 mmol/L (3.5-5.1); Protein, Total 6.4 g/dL (5.8-8.1); Sodium 139 mmol/L (136-145)
[2023-09-17] MEDS ORDERED: Acetaminophen 500 MG TAB ONE (00:56)
[2023-09-17] MEDS ORDERED: Furosemide 40 MG/4 ML VIAL ONE (01:53)
[2023-09-17] MEDS ORDERED: Aspirin Chewable 81 MG TAB ONE (04:09)
[2023-09-17] MEDS ORDERED: Aspirin 325 mg Enteric Coated Tablet ONE (05:31)
[2023-09-17] MEDS ORDERED: Iopamidol 370 76% 100 ML VIAL ONE (09:47)
== END 2023-09-17 06:35 | disposition home or self-care (01) ==
LOC: CSHERS 22:28
DX: H54.7 Unspecified visual loss (principal); I25.10 Atherosclerotic heart disease of native coronary artery without angina pectoris; E11.9 Type 2 diabetes mellitus without complications; K21.9 Gastro-esophageal reflux disease without esophagitis; I10 Essential (primary) hypertension; E78.5 Hyperlipidemia, unspecified; Z79.899 Other long term (current) drug therapy; Z79.84 Long term (current) use of oral hypoglycemic drugs; Z79.82 Long term (current) use of aspirin
CPT/HCPCS: 70450; 70481; 70496; 70498; 71045; 80053; 83690; 83735; 83880; 84443; 84484; 85025; 85610; 85730; 93005; 93010; 96374; J1940; Q9967